=== PATIENT | male | born 1995 | race Caucasian/White ===

== ENCOUNTER 2020-01-02 12:33 | Emergency (ER) | payer OTHER ==
[~2020-01-02] VITALS: Ht 180.3 cm; Wt 74.8 kg
--- NOTE | 2020-01-02 12:45 | NUR ---
Patient bibra and lapd, in custody, seeing lights. On room air, breathing evenly and unlabored. connected to the monitor and pulse ox. Will continue to monitor accordingly.
[2020-01-02 13:39] VITALS: BP 130/77
--- NOTE | 2020-01-02 13:40 | NUR ---
Patient discharged back to [facility] in stable condition. Written and verbal after care instructions given. Patient verbalizes understanding of instruction.
== END 2020-01-02 13:40 ==
LOC: ER 12:36
DX: F19.10 Other psychoactive substance abuse, uncomplicated (principal); R44.1 Visual hallucinations; Z88.0 Allergy status to penicillin